=== PATIENT | male | born 1955 | race Caucasian/White ===

== ENCOUNTER 2022-10-24 09:31 | Inpatient (IN) | payer MEDICARE ==
[~2022-10-24] VITALS: Ht 205.7 cm; Wt 78.0 kg
--- NOTE | 2022-10-24 09:56 | NUR ---
Patient is unable to recall the exact names & dosages of his home medicines at this time.
[2022-10-24] MEDS ORDERED: PAIN MEDICINE (09:57)
[2022-10-24] MEDS ORDERED: ATIVAN (09:57)
[2022-10-24] MEDS ORDERED: TESTOSTERONE (09:57)
[2022-10-24 10:04] LABS: HEMATOCRIT 35.7 % (36.7-47.1); MEAN CORPUSCULAR HEMOGLOBIN 30.9 uug (23.8-33.4); PLATELET COUNT (AUTO) 260 K/uL (152-348)
[2022-10-24 10:10] LABS: ABG BASE EXCESS -1.1 mmol/L; ABG HCO3 25.7 mmol/L; ABG PCO2 51.5 mmHg (35.0-45.0); ABG PH 7.316 (7.350-7.450); ABG PO2 67.8 mmHg (75.0-100.0); ABG SITE LEFT RADIAL; ABG TOTAL HEMOGLOBIN 13.1 G/dL (13.5-18.0); COHb 0.8 % (0.5-1.5); MetHb 0.2 % (0.0-1.5); O2Hb 91.1 % (94.0-97.0)
[2022-10-24] MEDS ORDERED: IV NORMAL SALINE 250 ML IV ONE (10:11)
[2022-10-24] MEDS ORDERED: SWABABLE VALVE TRANSFER SET EA MC ONE (10:11)
[2022-10-24] MEDS ORDERED: IOHEXOL 350 100 ML INFUS..BTL ONE (10:11)
[2022-10-24 10:21] LABS: CARBON DIOXIDE 26 mmol/L (21-32); CHLORIDE 93 mmol/L (98-107); CREATININE 1.1 mg/dL (0.6-1.3); GLUCOSE 166 mg/dL (74-106); POTASSIUM 4.2 mmol/L (3.5-5.1); UREA NITROGEN, BLOOD 17 mg/dL (7-18)
[2022-10-24] MEDS ORDERED: ALBUTEROL SULFATE 2.5 MG/3 ML NEBU ONE (10:27)
[2022-10-24] MEDS ORDERED: ALBUTEROL SULFATE 2.5 MG/3 ML NEBU NEB ONE (10:30)
[2022-10-24 10:33] LABS: ALANINE AMINOTRANSFERASE 23 U/L (16-63); ALKALINE PHOSPHATASE 84 U/L (50-136); ASPARTATE AMINOTRANSFERASE 23 U/L (15-37); BILIRUBIN,DIRECT 0.1 mg/dL (0.0-0.2); BILIRUBIN,TOTAL 0.4 mg/dL (0.2-1.0); TOTAL PROTEIN, SERUM 7.1 g/dL (6.4-8.2)
[2022-10-24] MEDS ORDERED: IV NORMAL SALINE 1000 ML BAG IV ONE (11:00)
[2022-10-24] MEDS ORDERED: BENA40TA8 PO (11:22)
[2022-10-24] MEDS ORDERED: TAMS-3 PO (11:22)
[2022-10-24] MEDS ORDERED: SERT-439 PO (11:23)
--- NOTE | 2022-10-24 11:38 | NUR ---
Patient back from CT scan accompanied by RN.
[2022-10-24] MEDS ORDERED: PIPERACILLIN SODIUM/TAZOBACTAM 3.375 G in IV DEXTROSE 5% 50 ML IV ONE (12:00)
[2022-10-24] MEDS ORDERED: PIPERACILLIN/TAZOBACTAM/D5W 50 ML IV ONE (12:04)
--- NOTE | 2022-10-24 13:03 | NUR ---
FiO2 setting on BiPap changed to 80%
--- NOTE | 2022-10-24 13:10 | NUR ---
FiO2 setting on BiPap changed to 60%
--- NOTE | 2022-10-24 13:50 | NUR ---
Gave report to GAURAV Ruth.
--- NOTE | 2022-10-24 14:18 | NUR ---
IV inserted on right wrist 20G.
--- NOTE | 2022-10-24 15:45 | NUR ---
Patient transferred to CCU accompanied by RN.
[2022-10-24 17:26] VITALS: BP 160/77
[2022-10-24] MEDS ORDERED: ONDANSETRON 4 MG/2 ML VIAL IV PRN (17:45)
[2022-10-24 18:00] VITALS: BP 170/99
[2022-10-24] MEDS ORDERED: ACETAMINOPHEN 325 MG TABLET PO PRN (18:00)
[2022-10-24] MEDS ORDERED: MORPHINE SULFATE 2 MG/1 ML DISP.SYRIN IV PRN (18:00)
[2022-10-24] MEDS ORDERED: REMEDY ESSENTIAL ZINC PASTE 113 GM TP PRN (18:00)
[2022-10-24] MEDS ORDERED: DEXAMETHASONE SOD PHOSPHATE 10 MG INJ IV ONE ×2 (18:30→18:45)
[2022-10-24] MEDS: ONDANSETRON 4 MG/2 ML VIAL IV PRN (18:35)
--- NOTE | 2022-10-24 18:41 | NUR ---
Gave Zofran 4mg IV for nausea refused IV Decadron has allergies to cortisone pharmacist called and updated.
[2022-10-24] MEDS: IPRATROPIUM BROMIDE 0.5 MG/2.5 ML NEBU NEB SCH (19:30)
[2022-10-24] MEDS: ALBUTEROL SULFATE 2.5 MG/3 ML NEBU NEB SCH (19:30)
[2022-10-24 20:00] VITALS: BP 164/87
[2022-10-24] MEDS ORDERED: VANCOMYCIN IV 1,250 MG in IV DEXTROSE 5% 250 ML IV ONE (20:00)
[2022-10-24] MEDS: PIPERACILLIN SODIUM/TAZOBACTAM 3.375 G in IV DEXTROSE 5% 50 ML IV SCH (20:47)
[2022-10-24] MEDS ORDERED: ENOXAPARIN SODIUM 40 MG/0.4 ML DISP.SYRIN SQ SCH (21:00)
[2022-10-24] MEDS ORDERED: TAMSULOSIN HCL 0.4 MG CAP.SR.24H PO SCH (21:00)
[2022-10-24 22:00] VITALS: BP 146/79
[2022-10-24] MEDS: OXYCODONE HCL 5 MG TABLET PO SCH (22:38)
[2022-10-25] VITALS (8 sets, daily range): BP systolic 103–148; BP diastolic 57–89
[2022-10-25] MEDS: PIPERACILLIN SODIUM/TAZOBACTAM 3.375 G in IV DEXTROSE 5% 50 ML IV SCH ×3 (00:16→11:49)
[2022-10-25 04:58] LABS: MEAN CORPUSCULAR HEMOGLOBIN 30.8 uug (23.8-33.4); MEAN CORPUSCULAR VOLUME 90.7 fL (73.0-96.2); PLATELET COUNT (AUTO) 242 K/uL (152-348)
[2022-10-25] MEDS: ONDANSETRON 4 MG/2 ML VIAL IV PRN (04:58)
[2022-10-25 05:10] LABS: BILIRUBIN,TOTAL 0.7 mg/dL (0.2-1.0); CREATININE 1.1 mg/dL (0.6-1.3); MAGNESIUM 2.1 mg/dL (1.8-2.4); PHOSPHOROUS 3.2 mg/dL (2.5-4.9); POTASSIUM 4.4 mmol/L (3.5-5.1); TOTAL PROTEIN, SERUM 6.6 g/dL (6.4-8.2)
[2022-10-25] MEDS ORDERED: PANTOPRAZOLE SODIUM 40 MG TABLET.DR PO SCH (07:00)
--- NOTE | 2022-10-25 07:25 | NUR ---
REPORT GIVEN TO GAURAV AGRAWAL
[2022-10-25] MEDS: IPRATROPIUM BROMIDE 0.5 MG/2.5 ML NEBU NEB SCH ×3 (07:29→15:10)
[2022-10-25] MEDS: ALBUTEROL SULFATE 2.5 MG/3 ML NEBU NEB SCH ×3 (07:29→15:10)
[2022-10-25] MEDS ORDERED: VANCOMYCIN IV 1,000 MG in IV DEXTROSE 5% 250 ML IV SCH (08:00)
[2022-10-25] MEDS ORDERED: SERTRALINE HCL 50 MG TABLET PO SCH (09:00)
[2022-10-25] MEDS ORDERED: BENAZEPRIL HCL 20 MG TABLET PO SCH (09:00)
[2022-10-25] MEDS: OXYCODONE HCL 5 MG TABLET PO SCH (09:57)
--- NOTE | 2022-10-25 14:41 | NUR ---
CHAPARRITA Vaughn discharged patient and gave bedside instructions. Will print instructions for patient for home. No complaints of short breath today remains on room air oxygen saturation > 95%. Skin color is pink, warm and dry to touch. Afebrile 98.4 oral no complaints of pain.
[2022-10-25] MEDS ORDERED: AMOX-430 PO (15:02)
--- NOTE | 2022-10-25 15:51 | NUR ---
Discharged to home via wheel chair to vehicle with . All discharge instructions given both verbally and written copy provided no further questions.
== END 2022-10-25 15:45 | disposition home or self-care (01) | DRG 205 ==
LOC: ER 09:31 → CCU 14:04
PROVIDERS: ADMIT Nurse Practitioner Acute Care; ATTEND Nurse Practitioner Acute Care
PROC: 5A09357 Assistance with Respiratory Ventilation, Less than 24 Consecutive Hours, Continuous Positive Airway Pressure (ICD-10-PCS; principal; 2022-10-24)
DX: J95.4 Chemical pneumonitis due to anesthesia (principal); J95.821 Acute postprocedural respiratory failure; E44.0 Moderate protein-calorie malnutrition; E87.29 Other acidosis; E22.2 Syndrome of inappropriate secretion of antidiuretic hormone; Z68.1 Body mass index [BMI] 19.9 or less, adult; J84.9 Interstitial pulmonary disease, unspecified; I10 Essential (primary) hypertension; G89.29 Other chronic pain; Z92.3 Personal history of irradiation; Z85.46 Personal history of malignant neoplasm of prostate; Z85.51 Personal history of malignant neoplasm of bladder; M10.9 Gout, unspecified; Z90.79 Acquired absence of other genital organ(s); M19.90 Unspecified osteoarthritis, unspecified site; J95.89 Other postprocedural complications and disorders of respiratory system, not elsewhere classified; T41.45XA Adverse effect of unspecified anesthetic, initial encounter; Y83.8 Other surgical procedures as the cause of abnormal reaction of the patient, or of later complication, without mention of misadventure at the time of the procedure; Y92.530 Ambulatory surgery center as the place of occurrence of the external cause
CPT/HCPCS: 36415; 36600; 71045; 71275; 82803; 83735; 84100; 84484; 85025; 93005; 94640; 94660; 94664; 99082-TC; A4663; G0378; J1650; J2270; J2405; J2543; J3370; J3590; J7040; J7050; Q9967